=== PATIENT | male | born 1985 | race Caucasian/White ===

== ENCOUNTER → 2017-10-01 | Outpatient (CLI) | payer OTHER ==
[~2017-10-01] MED LIST: SULF1TAB35 PO
--- NOTE | 2017-10-01 16:15 | Diagnostic Imaging Report ---
INDICATION: Left lateral knee pain. Trauma. EXAMINATION: Three views of the left knee were obtained. FINDINGS: No evidence of fracture. Joint spaces are well preserved. Articulating surfaces are smooth. Patellofemoral joint appears normal. IMPRESSION: Normal left knee. Dictated by: Dictated on workstation # [id number]
== END ==
LOC: RAD 15:21
PROVIDERS: ATTEND Family Medicine
DX: S80.02XA Contusion of left knee, initial encounter (principal)
CPT/HCPCS: 73562

== ENCOUNTER → 2019-01-02 | Emergency (ER) | payer SELFPAY, OTHER | LOC: ER 21:56 ==